=== PATIENT | female | born 1960 | race Caucasian/White ===

== ENCOUNTER → 2019-02-13 11:27 | Outpatient (CLI) | payer OTHER, SELFPAY ==
--- NOTE | 2019-02-13 | DI.MG.S_ITS ---
BILATERAL DIGITAL SCREENING MAMMOGRAM 3D/2D WITH CAD: 02/13/2019 CLINICAL: Routine screening. Comparison is made to exams dated: 01/31/2018 mammogram, 01/22/2017 mammogram, and 12/29/2015 mammogram - [facility]. The tissue of both breasts is heterogeneously dense. This may lower the sensitivity of mammography. Current study was also evaluated with a Computer Aided Detection (CAD) system. No significant masses, calcifications, or other findings are seen in either breast. There has been no significant interval change. IMPRESSION: NEGATIVE There is no mammographic evidence of malignancy. A 1 year screening mammogram is recommended. This exam was interpreted at Station ID: [id number]. NOTE: For mammograms, a report in lay terms will be sent to the patient. Approximately 15% of breast malignancies will not be visualized mammographically. In the management of a palpable breast mass, a negative mammogram must not discourage biopsy of a clinically suspicious lesion. Electronically Signed By: Ernie sanabria/moni:02/13/2019 11:58:48 copy to: Fly Sharpe letter sent: Normal Exam ACR BI-RADS Category 1: Negative [id number]
== END ==
PROVIDERS: PCP Family Medicine; Visit Provider Family Medicine
DX: Z12.31 Encounter for screening mammogram for malignant neoplasm of breast (principal)
CPT/HCPCS: 77063; 77067

== ENCOUNTER → 2020-02-17 13:06 | Outpatient (CLI) | payer OTHER, SELFPAY ==
--- NOTE | 2020-02-17 | DI.MG.S_ITS ---
BILATERAL DIGITAL DIAGNOSTIC MAMMOGRAM 3D/2D: 02/17/2020 CLINICAL: Left breast discharge. Comparison is made to exams dated: 02/13/2019 mammogram, 01/31/2018 mammogram, 01/22/2017 mammogram, 12/29/2015 mammogram, 12/15/2014 mammogram, and 11/30/2013 mammogram - [facility]. The tissue of both breasts is heterogeneously dense. This may lower the sensitivity of mammography. There is possible architectural distortion with fine round calcifications in the right breast anterior depth inferior region seen on the mediolateral oblique view only. This is more prominent and seen on additional ML view. There are possible a grouped fine calcifications in the left breast central to the nipple in the retroareolar region. These are not seen in additional views. This correlates with side of nipple discharge. No other significant masses or calcifications are seen in either breast. IMPRESSION: INCOMPLETE: NEEDS ADDITIONAL IMAGING EVALUATION The architectural distortion in the right breast anterior depth inferior region seen on the mediolateral oblique view is indeterminate. A targeted ultrasound is recommended and will immediately follow. No definite abnormality in the retroareolar left breast to correspond to nipple discharge. A targeted ultrasound is recommended and will immediately follow. This exam was interpreted at Station ID: [id number]. NOTE: For mammograms, a report in lay terms will be sent to the patient. Approximately 15% of breast malignancies will not be visualized mammographically. In the management of a palpable breast mass, a negative mammogram must not discourage biopsy of a clinically suspicious lesion. Electronically Signed By: Juan Chun M.D. slc/:02/17/2020 16:07:21 copy to: Fly Sharpe ACR BI-RADS Category 0: Incomplete 3340F
--- NOTE | 2020-02-17 | DI.US.S_ITS ---
LIMITED ULTRASOUND OF LEFT BREAST: 02/17/2020 CLINICAL: Nipple discharge, left breast, not bloody. Focal left breast pain. Comparison is made to exams dated: 02/17/2020 mammogram, 02/13/2019 mammogram, 01/31/2018 mammogram, 01/22/2017 mammogram, 12/29/2015 mammogram, and 12/15/2014 mammogram - [facility]. Color flow and real-time ultrasound of the left breast retroareolar were performed. Wong scale images of the real-time examination were reviewed. There are dilated ducts in the left breast central to the nipple in the retroareolar region. This correlates with the side of nipple discharge. Color flow imaging demonstrates that there is no vascularity present. No intraductal mass seen. IMPRESSION: PROBABLY BENIGN The dilated ducts in the left breast is consistent with duct ectasia and is probably benign. A follow-up ultrasound in 6 months is recommended. A follow-up mammogram and an ultrasound in 6 months is recommended to demonstrate stability. Exam findings were discussed with the patient by Dr. Chun over the phone. This exam was interpreted at Station ID: [id number]. Electronically Signed By: Juan Chun M.D. slc/:02/17/2020 16:13:30 copy to: Fly Sharpe letter sent: Followup Recommended Ultrasound BI-RADS: 3 Probably benign
--- NOTE | 2020-02-17 | DI.US.S_ITS ---
LIMITED ULTRASOUND OF RIGHT BREAST AND AXILLA: 02/17/2020 CLINICAL: Patient returns today to evaluate an architectural distortion in the right breast. Comparison is made to exams dated: 02/17/2020 mammogram, 02/13/2019 mammogram, 01/31/2018 mammogram, 01/22/2017 mammogram, 12/29/2015 mammogram, and 12/15/2014 mammogram - [facility]. Color flow and real-time ultrasound of the right breast 4-6 o'clock, and axilla regions were performed. Wong scale images of the real-time examination were reviewed. There is an irregular area of fibroglandular tissue in the right breast at 4-6 o'clock anterior depth. This irregular area of fibroglandular tissue is hypoechoic. This may correlate with mammography finding of architectural distortion. The calcifications seen on mammogram are faintly visualized. Color flow imaging demonstrates that there is no increase in vascularity. There also is a 2.9 cm x 1.2 cm x 1.4 cm oval enlarged lymph node with a circumscribed margin in the right axillary tail. This oval enlarged lymph node displays fatty hilum. No cortical thickening seen. IMPRESSION: SUSPICIOUS OF MALIGNANCY The irregular area of fibroglandular tissue in the right breast inferior medial anterior depth is at a low suspicion for malignancy. A stereotactic biopsy is recommended targeting the suspected architectural distortion and calcifications. The oval enlarged lymph node in the right axillary tail without cortical thickening and preserved fatty hilum is probably benign. A follow-up ultrasound in 6 months is recommended. If the stereotactic biopsy is positive, ultrasound guided biopsy should be preformed. Exam findings were discussed with the patient by Dr. Chun over the phone. This exam was interpreted at Station ID: [id number]. Electronically Signed By: Juan Chun M.D. slc/:02/17/2020 16:24:43 copy to: Fly Sharpe letter sent: Biopsy Required Ultrasound BI-RADS: 4a Low suspicion for malignancy
[2020-02-17 15:11] LABS: Add Manual Diff / Slide Review NO; Basophils Absolute Auto 100 /uL (0-100); Eosinophils Absolute Auto 100 /uL (0-450); Eosinophils Percent Auto 2.5 % (2-4); Hematocrit 44.5 % (36-46); Hemoglobin 15.4 g/dL (12.0-16.0); Lymphocytes Absolute Auto 1900 /uL (1100-4500); Lymphocytes Percent Auto 33.1 % (25-40); Mean Corpuscular HGB Conc 34.7 % (30-36); Mean Corpuscular Hemoglobin 32.5 PG (26-34); Mean Corpuscular Volume 93.8 fL (80-100); Monocytes Absolute Auto 600 /uL (0-900); Monocytes Percent Auto 9.9 % (3-14); Neutrophils Absolute Auto 3100 /uL (1500-7000); Neutrophils Percent Auto 53.5 % (50-75); Platelet Count 186 X10^3/uL (150-400); Red Blood Cell Count 4.74 X10^6/uL (4.0-5.2); Red Cell Distribution Width 13.2 % (11.6-14.8); White Blood Cell Count 5.8 X10^3/uL (4.5-11.0)
[2020-02-17 15:45] LABS: Prolactin 16.2 ng/mL (3.0-18.6)
[2020-02-17 15:59] LABS: TSH w/ Reflex to FT4 3.31 uIU/mL (0.47-4.68)
== END ==
PROVIDERS: PCP Family Medicine; Referring Provider Student in an Organized Health Care Education/Training Program; Visit Provider Student in an Organized Health Care Education/Training Program
DX: R92.8 Other abnormal and inconclusive findings on diagnostic imaging of breast (principal); N60.42 Mammary duct ectasia of left breast; N64.52 Nipple discharge; N64.4 Mastodynia; R59.0 Localized enlarged lymph nodes
CPT/HCPCS: 36415; 76642; 77066; 84146; 84443; 85025; G0279

== ENCOUNTER → 2020-05-29 08:43 | Outpatient (CLI) | payer OTHER, SELFPAY ==
[2020-05-30 13:58] LABS: COVID19 Sendout Not Detected (Not Detect)
== END ==
PROVIDERS: PCP Student in an Organized Health Care Education/Training Program; Visit Provider Physician Assistant
DX: Z01.812 Encounter for preprocedural laboratory examination (principal)
CPT/HCPCS: 87635

== ENCOUNTER 2020-06-01 07:01 | Day surgery (SDC) | payer OTHER, SELFPAY ==
[2020-05-27 08:59] VITALS: BMI 24.3
--- NOTE | 2020-06-01 | DI.MG.S_ITS ---
WIRE LOCALIZATION RIGHT BREAST- POST-NEEDLE BIOPSY: 06/01/2020 CLINICAL: Right breast radial scar. Correlation is made to exams dated: 02/22/2020 stereotactic biopsy - [facility], 02/17/2020 mammogram, and 02/13/2019 mammogram - [facility]. A wire localization was performed for the area of asymmetry located in the right breast at 4 o'clock middle depth. The skin was prepped in the usual manner. A J-hook wire was inserted into the targeted area. IMPRESSION: WIRE LOCALIZATION Wire localization for the area of asymmetry in the right breast at 4 o'clock middle depth was successful. Future imaging is recommended as follows: 08/18/2020 mammogram and an ultrasound. This exam was interpreted at Station ID: [id number]. Crys lowe/moni:06/01/2020 11:51:52
--- NOTE | 2020-06-01 | DI.MG.S_ITS ---
SPECIMEN: 06/01/2020 CLINICAL: Right breast speciman. Correlation is made to exams dated: 06/01/2020 [facility] and 02/22/2020 stereotactic biopsy - [facility]. Surgical specimen contains clip and wire. IMPRESSION: SPECIMEN Surgical specimen contains clip and wire. Future imaging is recommended as follows: 08/18/2020 mammogram and an ultrasound. This exam was interpreted at Station ID: [id number]. Crys Santana M.D. [facility]/:06/01/2020 12:58:22
--- NOTE | 2020-06-01 | PATH_ITS ---
[facility] Accession Number: [id number] . 01 Material submitted: . breast - RIGHT BREAST TISSUE . 01 Clinical history: . RIGHT BREAST EXCISIONAL BX . 02 Diagnosis: Right Breast Tissue, Excisional Biopsy with Wire Localization: Radial scar present in a background of fibrocystic change consisting of stromal fibrosis with patchy hyalinization, cystic dilatation of terminal ductules, apocrine metaplasia, ductal hyperplasia without atypia, and patchy adenosis. Changes consistent with previous instrumentation are present. Pleomorphic calcifications are present and are associated with benign ductal epithelium. Skin with no abnormality by gross examination. [facility] 06/03/2020 1312 Local . 02 Electronically signed: . Fabiana Miguel MD, Pathologist NPI- [id number] . 01 Gross description: . Specimen A is received in formalin, labeled with patient identification and right breast tissue. . Specimen: Right lumpectomy. Weight: 34.0 grams. Measurement: 5.0 cm from anterior to posterior, 5.0 cm from lateral to medial, and 2.5 cm from superior to inferior. Skin Ellipse: A small pink-ledesma and small piece of skin is present, measuring 0.7 x 0.3 x 0.2 cm. Wire: One localization wire is present, penetrating at the anterior side and through the skin piece. Margin: Oriented by surgeon with short single lateral suture, short double medial suture, long double deep suture, and long single superficial suture. The specimen is inked as follows: posterior = black; anterior = purple; superior = blue; inferior = green; medial = yellow; lateral = orange. Slice: Serially sectioned from medial to lateral in 11 slices. Lesion: Description: A white-ledesma, ill-defined and encapsulated induration is present from slice 6 to slice 8. Biopsy Site: A mildly hemorrhagic biopsy cavity is present on slice 7. Distance to Margins: The induration abuts the anterior and superior margins, 0.5 cm to the inferior margin, 1.8 cm to medial margin, 2.2 cm to lateral margin, and 2.8 cm to the posterior margin. Others: The remaining cut surfaces consist of yellow lobulated adipose tissue compromising 95% of the breast parenchyma. The remaining 5% consists of queen-white, rubbery, fibroglandular tissue. No additional discrete masses or lesions are grossly identified. The skin surface is grossly unremarkable. Fixation Time: The specimen was placed in formalin at 13:16 on 06/01/2020 for a total fixation time of 34 hours and 45 minutes. . Sections: [employer] sections are submitted in 12 cassettes. A1 - Slice 1, teleservices representative lateral end of specimen, perpendicular, four pieces. A2 - Slice 2, teleservices representative anterior, posterior, superior, and inferior margins. A3 - Slice 5, teleservices representative, no identifiable tumor, lateral to lesion (beginning of bracket). A4 - Slice 6, mass to anterior, superior, and inferior margins, one piece. A5-A6 - Slice 7, mass to the closest superior, anterior, inferior, and posterior margins, pair, one piece each. A7 - Slice 8, the remaining mass to anterior, superior, and inferior margins, one piece. A8 - Slice 9, teleservices representative, no identifiable tumor, medial to lesion (end of the bracket). A9 - Slice 10, teleservices representative superior and inferior margins, one piece. A10-A11 - Slice 11, teleservices representative medial end of the specimen, perpendicular, two pieces each. A12 - [employer] entire small piece of skin, one piece. ([id number]) /[facility] 06/03/2020 0947 Local . 02 Pathologist provided ICD-10: L90.5, N60.11 . 02 CPT . 893213 Performed at: 01 [facility] [address], [place], [place] [id number] MD Ashvin Arana MD Phone: [phone] Performed at: 02 [facility] [address] [place], [place] [id number] MD Mohini Stringer MD Phone: [phone]
[2020-06-01 07:18] VITALS: BP 175/96; PULSE 77; RESP 18; TEMP 35.9; O2SAT 97; BMI 24.8
--- NOTE | 2020-06-01 07:38 | PM.PREOP ---
Pre-operative Note COVID-19 COVID-19 status: Negative Result date/Date tested (Pos, Neg/Pending): 05/29/20 Interval Note History & Physical reviewed/Exam performed by Physician: Yes Changes to H&P: No
[2020-06-01] MEDS: LACTATED RINGERS 1,000 ML 100 ML IV (09:11)
[2020-06-01] MEDS: CEFAZOLIN 2 GM/100 ML FROZ.PIGGY IV (11:53)
--- NOTE | 2020-06-01 11:57 | SUR.OPER ---
Supine on padded OR bed, head on pillow, arms secured on padded arm boards at <90 degrees abduction, legs uncrossed, safety belt at thigh, tape over blanket over lower legs.
[2020-06-01] MEDS: BUPIVACAINE 0.25% W/ EPI 30 ML VIAL INJ (12:10)
[2020-06-01] MEDS: OXYCODONE IR 5 MG TABLET PO (13:13)
--- NOTE | 2020-06-01 13:16 | PM.OP.1 ---
Operative Date/Time/Diagnoses Date of procedure: 06/01/20 Time of procedure: 13:16 Pre-op diagnosis: right breast radial scar Post-op diagnosis: same Procedure & Clinicians Procedure: right breast lumpectomy; 2cm x3cm Same procedure as scheduled: Yes Indications: This is a 59 yo woman with right breast radial scar. Surgeon: Janis Huertas Click Yes if Unassisted: Yes Anesthesia Type: General Operative Notes Findings: Right breast mass with clip and wire completely included in the specimen Closure Type: primary Specimen(s): other (right breast mass; long double stitch deep; short single stitch superficial; short double stitch medial; short single stitch lateral) Estimated Blood Loss (mL): 1 Procedure in detail: The patient was brought into the OR and placed supine on the OR table. Sequential compression devices were placed on both legs and turned on. General anesthesia was induced and the patient was intubated by the anesthesiologist. Appropriate perioperative antibiotics were given. Surgical time out was performed. Local anesthetic was infiltrated into the skin, and a 6cm curvilinear incision was made over the lower inner quadrant of the right breast, including the localization wire. Dissection was carried down following the wire, encompassing a 2cm x 3cm lumpectomy specimen. Once the specimen was out, it was marked as listed. I then passed it off the table for radiology. We received a call from radiology that the wire and clip were included in the specimen. I irrigated the wound and cauterized the bleeding points with bovie. I then brought together the deep space with 3-0 Vicryl, closed the dermis with 3-0 Vicryl, and subcuticular 4-0 Monocryl. Dermabond was used to seal the skin edges. Once the glue was dry, a 4x4 pressure dressing was secured in place with Tegaderm, and a breast binder was placed on the patient for compression. All were secured in place with Tegaderm. The patient was then awakened from anesthesia and extubated. Needle sponge and instrument counts were correct x 2. The patient was transferred to the PACU in stable condition. Complications: none Post-operative Condition: stable Disposition: PACU
[2020-06-01 13:25] VITALS: BP 161/93; PULSE 68; RESP 16; TEMP 36.3; O2SAT 98
--- NOTE | 2020-06-01 13:33 | SUR.PHASEII ---
Patient came straight from OR to phase 2, accomponied by Dr. Deal. Patient alert and oriented. Respirations even and unlabored.
[2020-06-01 13:53] VITALS: BP 153/86; PULSE 68; RESP 16; TEMP 36.3; O2SAT 98
== END 2020-06-01 14:00 | disposition home or self-care (01) ==
PROVIDERS: PCP Student in an Organized Health Care Education/Training Program; Referring Provider Surgery; Visit Provider Surgery
PROC: (CPT 19301; principal; 2020-06-01 10:45)
DX: N60.11 Diffuse cystic mastopathy of right breast (principal); L90.5 Scar conditions and fibrosis of skin
CPT/HCPCS: 19301; 19281; 76098; J0690; J1100; J2250; J2405; J2704; J3010

== ENCOUNTER → 2020-09-22 09:30 | Outpatient (CLI) | payer OTHER, SELFPAY ==
--- NOTE | 2020-09-22 09:34 | DI.MG.S_ITS ---
BILATERAL DIGITAL DIAGNOSTIC MAMMOGRAM 3D/2D: 09/22/2020 CLINICAL: Short term follow up for bilateral breasts. Comparison is made to exams dated: 02/22/2020 stereotactic biopsy - [facility], 02/17/2020 mammogram, and 02/13/2019 mammogram - [facility]. The tissue of both breasts is heterogeneously dense. This may lower the sensitivity of mammography. There is a possible stable architectural distortion with fine round calcifications in the right breast anterior depth inferior region seen on the mediolateral oblique view only. There are stable grouped fine calcifications in the left breast central to the nipple in the retroareolar region. No other significant masses or calcifications are seen in either breast. IMPRESSION: PROBABLY BENIGN The possible stable architectural distortion in the right breast anterior depth inferior region seen on the mediolateral oblique view only is probably benign. The stable grouped fine calcifications in the left breast central to the nipple in the retroareolar region are probably benign. A follow-up mammogram in 12 months is recommended. This exam was interpreted at Station ID: [id number]. NOTE: For mammograms, a report in lay terms will be sent to the patient. Approximately 15% of breast malignancies will not be visualized mammographically. In the management of a palpable breast mass, a negative mammogram must not discourage biopsy of a clinically suspicious lesion. Electronically Signed By: Aneudy Epperson M.D., jr/moni:09/22/2020 10:30:59 letter sent: Followup Recommended ACR BI-RADS Category 3: Probably benign 3343F
== END ==
PROVIDERS: PCP Student in an Organized Health Care Education/Training Program; Referring Provider Student in an Organized Health Care Education/Training Program; Visit Provider Student in an Organized Health Care Education/Training Program
DX: R92.8 Other abnormal and inconclusive findings on diagnostic imaging of breast (principal); R92.1 Mammographic calcification found on diagnostic imaging of breast
CPT/HCPCS: 77066; G0279

== ENCOUNTER → 2020-12-01 14:08 | Outpatient (CLI) | payer OTHER, SELFPAY ==
--- NOTE | 2020-12-01 | DI.US.S_ITS ---
LIMITED ULTRASOUND OF LEFT BREAST AND AXILLA: 12/01/2020 CLINICAL: Nipple discharge, left breast, not bloody. Comparison is made to exams dated: 09/22/2020 mammogram, 06/01/2020 specimen, 06/01/2020 [facility], 05/10/2020 ultrasound biopsy - [facility], and 02/17/2020 [facility]. Color flow and real-time ultrasound of the left breast retroareolar and axilla regions were performed on the areas of interest. There are a few mildly dilated ducts in the left breast central to the nipple in the retroareolar region measuring 2-3 mm. No discrete mass or other filling defects. Findings are slightly increased in prominence compared to prior US. IMPRESSION: PROBABLY BENIGN The dilated ducts in the left breast are probably benign. A follow-up ultrasound in 10-12 months is recommended at the time of patient's recommended mammogram followup. Future imaging is recommended as follows: 09/22/2021 follow-up left mammogram. This exam was interpreted at Station ID: [id number]. Electronically Signed By: Ashvin Sanabria M.D. ddmac/:12/01/2020 14:57:30 letter sent: Followup Recommended Ultrasound BI-RADS: 3 Probably benign
== END ==
PROVIDERS: PCP Student in an Organized Health Care Education/Training Program; Referring Provider Student in an Organized Health Care Education/Training Program; Visit Provider Student in an Organized Health Care Education/Training Program
DX: N64.52 Nipple discharge (principal)
CPT/HCPCS: 76642

== ENCOUNTER → 2021-01-31 16:52 | Outpatient (CLI) | payer OTHER, SELFPAY ==
[2021-01-31] MEDS: COVID-19 VACC #1, MRNA(MOD) 100 MCG/0.5 ML VIAL IM (16:58)
== END ==
PROVIDERS: PCP Student in an Organized Health Care Education/Training Program; Visit Provider Internal Medicine
DX: Z23 Encounter for immunization (principal)
CPT/HCPCS: 0011A; 91301

== ENCOUNTER → 2021-03-01 10:18 | Outpatient (CLI) | payer OTHER, SELFPAY ==
[2021-03-01] MEDS: COVID-19 VACC #2, MRNA(MOD) 100 MCG/0.5 ML VIAL IM (10:26)
== END ==
PROVIDERS: PCP Student in an Organized Health Care Education/Training Program; Visit Provider Internal Medicine
DX: Z23 Encounter for immunization (principal)
CPT/HCPCS: 0012A; 91301

== ENCOUNTER → 2021-03-09 09:29 | Outpatient (CLI) | payer OTHER, SELFPAY ==
--- NOTE | 2021-03-09 | DI.RAD.S_ITS ---
PROCEDURE: FL BARIUM SWALLOW INDICATIONS: Dysphagia, unspecified COMPARISON: None. FINDINGS: Function: There is normal esophageal peristalsis. No elicited gastroesophageal reflux. There is normal transit of a calibrated barium tablet through the esophagus into the stomach. Morphology: Air-contrast images demonstrate normal mucosal morphology. Single contrast views show no esophageal strictures, extrinsic mass effects, or diverticula. Limited images of the stomach demonstrate normal appearance. IMPRESSION: Normal barium swallow exam. Dictated by: Reyna Garcia M.D. on 03/09/2021 at 11:17 Approved by: Reyna Garcia M.D. on 03/09/2021 at 11:20
== END ==
PROVIDERS: PCP Family Medicine; Referring Provider Family Medicine; Visit Provider Student in an Organized Health Care Education/Training Program
DX: R13.10 Dysphagia, unspecified (principal)
CPT/HCPCS: 74220

== ENCOUNTER → 2021-10-25 11:57 | Outpatient (CLI) | payer OTHER, SELFPAY ==
--- NOTE | 2021-10-25 | DI.MG.S_ITS ---
BILATERAL DIGITAL DIAGNOSTIC MAMMOGRAM 3D/2D SHORT-TERM FOLLOW-UP: 10/25/2021 CLINICAL: Short term follow up for bilateral breasts. Comparison is made to exams dated: 09/22/2020 mammogram, 02/17/2020 [facility], 02/22/2020 ultrasound - [facility], and 02/13/2019 [facility]. The tissue of both breasts is heterogeneously dense. This may lower the sensitivity of mammography. There is a stable architectural distortion with grouped fine round calcifications in the right breast anterior depth inferior region seen on the mediolateral oblique view only. There are stable grouped fine calcifications in the left breast central to the nipple anterior depth. No other significant masses or calcifications are seen in either breast. IMPRESSION: INCOMPLETE: NEEDS ADDITIONAL IMAGING EVALUATION The architectural distortion in the right breast anterior depth inferior region seen on the mediolateral oblique view only is stable and probably benign. Grouped fine calcifications in the left breast central to the nipple anterior depth are stable and probably benign. Follow-up in 12 months recommended. An ultrasound will immediately follow this exam to re-evaluate a few mildly dilated ducts in the left retroareolar breast seen previously (no mammographic correlate). This exam was interpreted at Station ID: [id number]. NOTE: For mammograms, a report in lay terms will be sent to the patient. Approximately 15% of breast malignancies will not be visualized mammographically. In the management of a palpable breast mass, a negative mammogram must not discourage biopsy of a clinically suspicious lesion. Electronically Signed By: Aneudy Epperson M.D. jr/:10/25/2021 12:49:26 ACR BI-RADS Category 0: Incomplete 3340F
--- NOTE | 2021-10-25 12:00 | DI.US.S_ITS ---
LIMITED ULTRASOUND OF LEFT BREAST: 10/25/2021 CLINICAL: Short term follow up for the left breast. Comparison is made to exams dated: 10/25/2021 mammogram, 12/01/2020 ultrasound, 09/22/2020 mammogram, 02/17/2020 ultrasound, 02/17/2020 mammogram, and 02/13/2019 mammogram - [facility]. Color flow, real-time, and Doppler ultrasound of the left breast retroareolar were performed. Wong scale images of the real-time examination were reviewed. There is a new 1.5 cm x 0.6 cm intraductal mass in the left breast at 6 o'clock in the retroareolar region 2 cm from the nipple. This intraductal mass is isoechoic with posterior acoustic shadowing. IMPRESSION: SUSPICIOUS OF MALIGNANCY The new 1.5 cm x 0.6 cm intraductal mass in the left breast is suspicious of malignancy. An ultrasound guided biopsy is recommended. This exam was interpreted at Station ID: [id number]. Electronically Signed By: Aneudy Epperson M.D., jr/moni:10/26/2021 09:12:13 letter sent: Biopsy Required Ultrasound BI-RADS: 4 Suspicious for malignancy
== END ==
PROVIDERS: PCP Family Medicine; Referring Provider Family Medicine; Visit Provider Family Medicine
DX: R92.8 Other abnormal and inconclusive findings on diagnostic imaging of breast (principal); N63.25 Unspecified lump in the left breast, overlapping quadrants; R92.1 Mammographic calcification found on diagnostic imaging of breast
CPT/HCPCS: 76642; 77066; G0279

== ENCOUNTER → 2021-10-25 12:06 | Outpatient (CLI) | payer OTHER, SELFPAY | PROVIDERS: PCP Family Medicine; Referring Provider Family Medicine; Visit Provider Family Medicine | DX: R92.8 Other abnormal and inconclusive findings on diagnostic imaging of breast (principal); R92.1 Mammographic calcification found on diagnostic imaging of breast; N63.25 Unspecified lump in the left breast, overlapping quadrants | CPT/HCPCS: 77066; G0279 ==

== ENCOUNTER → 2022-05-01 14:01 | Outpatient (CLI) | payer OTHER, SELFPAY ==
--- NOTE | 2022-05-01 14:06 | DIET.CONS ---
Dietary Consultation Note Assessment: 61y F [address] visit for help with new dx preDM (A1c 6.2) Pt lives alone, is . Taking statin (2y) and lisinopril both dialed in, pt feels good about amount, enjoys working c PCP. Pt loves to exercise, peloton 2-3x/w, pilates reformer once weekly, walk dog 30-90 min several times per week- excellent Usual Day: wakes 7-730am (night owl) cup coffee c half and half drinks a lot of water 9am morning meds B (9:30-10am): 1/2c dry old fashioned oats c walnuts and water, berries if have them, 2% milk or josh killer bread thin with fried egg, cheese or avocado or tomato Saturday breakfast waffles or pancakes c roach Sometimes has snack, sometimes has lunch Sn: 1/2 apple L: geradeli salad, mozza sandwich D: Hello Fresh twice weekly- veggie or fish/salmon, always has veggie (zucchini, spinach, onions pepper, mushrooms), small roasted potatoes, maybe rice, maybe naan Drinks red wine 4-5d/w but just one glass no red meat x40y sometimes has berries after dinner crackers for happy hour or olives Ht: 5'10 Wt: 178# BMI: 25.3 UBW: 165# RD Impression: Pt living quite healthy life nutrition and exercise cancino. She recently gained 10% of body weight through covid (wine and crackers) which could lead to elevated A1c. Pt has already started weight loss, currently -8# with a goal of another 8-13# reduction in weight. Recc pt check A1c in 3mo to see if lifestyle changes including 10% weight loss corrects this. Nutrition Diagnosis: altered nutrition related laboratory values r/t undesirable food choices and weight gain aeb pt gained 10% body weight over covid, pt reports increased intake low fiber crackers and wine during this time, A1c 6.2. Interventions: 1. Reinforced pts desire for weight loss secondary to labs showing HTN, HLD, HTG, preDM indicating benefit of 10% weight loss. 2. Discussed strategies like aiming for goal protein and fiber levels, and portion control. Pt will limit wine to no more than 2 glasses at a time, ideally 1 4 or fewer days per week. Pt will choose crackers with 3+g fiber per serving. Pt will switch from standard pancake mix to [employer] brand. 3. Set calorie needs to 6124-2951/d and provided cardiometabolic food plan to support balanced intake. EER: 25g Fiber, 80g PRO, 1800-2000kcals Monitoring/Evaluations: f/u prn Electronically Signed by: Molly Thomas 05/01/22 14:06 Clinical Dietitian [address] [id number]
[2022-05-01 15:00] VITALS: BMI 25.5
== END ==
PROVIDERS: PCP Family Medicine; Referring Provider Family Medicine; Visit Provider Family Medicine
DX: R73.03 Prediabetes (principal); Z71.3 Dietary counseling and surveillance; Z68.25 Body mass index [BMI] 25.0-25.9, adult
CPT/HCPCS: 97802

== ENCOUNTER → 2022-05-11 11:55 | Outpatient (CLI) | payer OTHER, SELFPAY ==
--- NOTE | 2022-05-11 11:56 | DI.US.S_ITS ---
PROCEDURE: US BREAST LT LIMITED COMPARISON: [facility], US, US BIOPSY BREAST 1ST LESION LEFT, 11/07/2021, 13:54. [facility], , US BREAST LT LIMITED, 10/25/2021, 12:53. INDICATIONS: INTRADUCTAL PAPILLOMA FINDINGS: IMPRESSION: Dictated by: Nia Guzman M.D. on 05/11/2022 at 13:09 Approved by: Nia Guzman M.D. on 05/11/2022 at 13:17
--- NOTE | 2022-05-11 11:56 | DI.MG.S_ITS ---
UNILATERAL LEFT DIGITAL DIAGNOSTIC MAMMOGRAM 3D/2D SHORT-TERM FOLLOW-UP: 05/11/2022 CLINICAL: Short term follow up for the left breast. Comparison is made to exams dated: 11/07/2021 ultrasound biopsy, 11/07/2021 mammogram - [facility], 10/25/2021 ultrasound, and 10/25/2021 mammogram - [facility]. The tissue of left breast is heterogeneously dense. This may lower the sensitivity of mammography. There is a biopsy clip in the left breast. No significant masses, calcifications, or other findings are seen in the breast. IMPRESSION: INCOMPLETE: NEEDS ADDITIONAL IMAGING EVALUATION A targeted ultrasound of the left breast is recommended to evaluate the previous biopsy site from 10/25/21 and will be performed immediately following this exam. Based on the Tyrer Cuzick model (a risk assessment model) the patient's lifetime risk is 9.5% and her 10 year risk is 3.7%. According to the ACR, ACS, and NCCN guidelines, an annual breast MRI exam along with mammogram is recommended if the patient's lifetime risk is 20% or greater. This exam was interpreted at Station ID: [id number]. NOTE: For mammograms, a report in lay terms will be sent to the patient. Approximately 15% of breast malignancies will not be visualized mammographically. In the management of a palpable breast mass, a negative mammogram must not discourage biopsy of a clinically suspicious lesion. Electronically Signed By: Nia Guzman M.D. lk/:05/11/2022 12:41:07 ACR BI-RADS Category 0: Incomplete 3340F
--- NOTE | 2022-05-11 12:59 | DI.US.S_ITS ---
Procedure: US breast LT limited ULTRASOUND OF LEFT BREAST: 05/11/2022 CLINICAL: 6 month follow-up biopsy. Comparison is made to exams dated: 05/11/2022 mammogram - , 11/07/2021 ultrasound biopsy, 11/07/2021 mammogram - [facility], 10/25/2021 ultrasound, 10/25/2021 mammogram, and 12/01/2020 ultrasound - . Color flow and real-time ultrasound of the left breast were performed on the areas of interest. Wong scale images of the real-time examination were reviewed. There is a 1.1 cm x 0.4 cm x 0.7 cm irregular mass in the left breast central to the nipple anterior depth. This abnormality is decreased in size from the study dated 10/25/21 and corresponds with the biopsy proven papilloma. IMPRESSION: PROBABLY BENIGN There is no sonographic evidence of malignancy. The 1.1 cm x 0.4 cm x 0.7 cm irregular mass in the left breast is consistent with a papilloma and is benign. Future imaging is recommended as follows: 10/25/2022 mammogram to follow up left breast calcifications. This exam was interpreted at Station ID: [id number]. Electronically Signed By: Nia Guzman M.D. lk/:05/11/2022 13:17:23 Entry: - 05/15/2022 10:55:05 Continued Report - Page 2 of 2 Patient Name: YARED WORKMAN date: 1960 Sex: F Attending Physician: Rajendra Indications: Date: 05/11/2022 12:59 At the request of: WARD ROTHMAN Procedure: US breast LT limited letter sent: Followup Recommended Ultrasound BI-RADS: 3 Probably benign
== END ==
PROVIDERS: PCP Family Medicine; Referring Provider Surgery; Visit Provider Surgery
DX: D24.2 Benign neoplasm of left breast (principal); R92.8 Other abnormal and inconclusive findings on diagnostic imaging of breast
CPT/HCPCS: 76642; 77065; G0279

== ENCOUNTER → 2022-12-17 10:13 | Outpatient (CLI) | payer OTHER, SELFPAY ==
--- NOTE | 2022-12-17 | DI.MG.S_ITS ---
BILATERAL DIGITAL DIAGNOSTIC MAMMOGRAM 3D/2D SHORT-TERM FOLLOW-UP: 12/17/2022 CLINICAL: Short term follow up of the left breast, due for bilateral imaging. Comparison is made to exams dated: 05/11/2022 mammogram - [facility], 11/07/2021 mammogram - [facility], and 10/25/2021 mammogram - [facility]. There are scattered areas of fibroglandular density in both breasts (category b / 25%-50% glandular tissue). There is a biopsy clip in the anterior left breast central to the nipple indicating region of previously biopsied callcifications. The calcifications are no longer seen. No other significant masses, calcifications, or other findings are seen in either breast. IMPRESSION: BENIGN Resolution of previously biopsied left breast calcifications. Mammograms are otherwise stable. Return to annual mammogram screening schedule is recommended. Findings and recommendations were conveyed to the patient at time of exam. Based on the Tyrer Cuzick model (a risk assessment model) the patient's lifetime risk is 6.2% and her 10 year risk is 2.5%. According to the ACR, ACS, and NCCN guidelines, an annual breast MRI exam along with mammogram is recommended if the patient's lifetime risk is 20% or greater. This exam was interpreted at Station ID: [id number]. NOTE: For mammograms, a report in lay terms will be sent to the patient. Approximately 15% of breast malignancies will not be visualized mammographically. In the management of a palpable breast mass, a negative mammogram must not discourage biopsy of a clinically suspicious lesion. Electronically Signed By: Amanda chowdhury/:12/17/2022 11:50:41 letter sent: Normal Exam ACR BI-RADS Category 2: Benign Finding(s) 3342F
== END ==
PROVIDERS: PCP Family Medicine; Referring Provider Family Medicine; Visit Provider Family Medicine
DX: R92.8 Other abnormal and inconclusive findings on diagnostic imaging of breast (principal)
CPT/HCPCS: 77066; G0279

== ENCOUNTER → 2023-12-18 08:34 | Outpatient (CLI) | payer OTHER, SELFPAY ==
--- NOTE | 2023-12-18 08:35 | DI.MG.S_ITS ---
BILATERAL DIGITAL SCREENING MAMMOGRAM 3D/2D WITH CAD: 12/18/2023 CLINICAL: Routine screening. Comparison is made to exams dated: 12/17/2022 mammogram, 05/11/2022 mammogram, 10/25/2021 mammogram, 09/22/2020 mammogram, 02/13/2019 mammogram, and 02/17/2020 mammogram - [facility]. There are scattered areas of fibroglandular density in both breasts (category b / 25%-50% glandular tissue). Current study was also evaluated with a Computer Aided Detection (CAD) system. No significant masses, calcifications, or other findings are seen in either breast. There has been no significant interval change. IMPRESSION: NEGATIVE There is no mammographic evidence of malignancy. A 1 year screening mammogram is recommended. Based on the Tyrer Cuzick model (a risk assessment model) the patient's lifetime risk is 6.1% and her 10 year risk is 2.5%. According to the ACR, ACS, and NCCN guidelines, an annual breast MRI exam along with mammogram is recommended if the patient's lifetime risk is 20% or greater. This exam was interpreted at Station ID: [id number]. NOTE: For mammograms, a report in lay terms will be sent to the patient. Approximately 15% of breast malignancies will not be visualized mammographically. In the management of a palpable breast mass, a negative mammogram must not discourage biopsy of a clinically suspicious lesion. Electronically Signed By: Nia walsh/moni:12/18/2023 09:08:22 copy to: WARD ROTHMAN letter sent: Normal Exam ACR BI-RADS Category 1: Negative 3341F
== END ==
LOC: MAMMO 08:34
PROVIDERS: PCP Family Medicine; Referring Provider Family Medicine; Visit Provider Family Medicine
DX: Z12.31 Encounter for screening mammogram for malignant neoplasm of breast (principal); R92.30 Dense breasts, unspecified
CPT/HCPCS: 77063; 77067

== ENCOUNTER → 2024-07-20 08:10 | Outpatient (CLI) | payer BC, SELFPAY ==
--- NOTE | 2024-07-20 | DI.US.S_ITS ---
PROCEDURE: US PELVIC COMPLETE INDICATIONS: LOWER ABDOMINAL PAIN TECHNIQUE: Real-time scanning was performed of the pelvic organs, with image documentation. Additional endovaginal scanning was necessary due to incomplete visualization of the adnexal and endometrial structures by transabdominal scanning. COMPARISON: None. FINDINGS: Uterus: Uterus is anteverted and normal in size at 5.5 x 2.3 x 3.1 cm. The myometrium is homogeneous. The endometrium measures 2.5 mm combined thickness. Ovaries: The right ovary measures 1.0 x 1.6 x 1.1 cm, with a calculated ovarian volume of 0.9 cc. The left ovary measures 1.5 x 2.1 x 0.9 cm, with a calculated ovarian volume of 1.6 cc. The ovaries have a normal sonographic appearance. Less than 12 follicles can be seen in each ovary. No adnexal masses are seen. Other: No pathologic free abdominal or pelvic fluid. IMPRESSION: Unremarkable ultrasound the pelvis Approved by: David Peng M.D. on 07/21/2024 at 10:56
== END ==
PROVIDERS: PCP Family Medicine; Referring Provider Family Medicine; Visit Provider Family Medicine
DX: R10.30 Lower abdominal pain, unspecified (principal)
CPT/HCPCS: 76830; 76856

== ENCOUNTER 2024-09-25 12:21 | Day surgery (SDC) | payer BC, SELFPAY ==
--- NOTE | 2024-09-25 | PATH_ITS ---
[facility] Accession Number: [id number] No. of containers..01 Tissue . 01 Material submitted: . colon - TRANSVERSE COLON POLYP . 01 Diagnosis: TRANSVERSE COLON POLYP: Hyperplastic polyp. [facility] 09/28/2024 1041 Local . 01 Electronically signed: . Lorenzo Trent MD, PhD, Pathologist NPI- [id number] . 01 Gross description: . Received in formalin, labeled with two patient identifiers and designated transverse colon polyp, and consists of a 0.2 cm in greatest dimension, ledesma-brown soft tissue which is entirely submitted in cassette A1. ([id number]) /FRR 09/26/2024 1358 Local . 01 Pathologist provided ICD-10: K63.5 . 01 CPT . 753667 Specimen Comment: A courtesy copy of this report has been sent to [phone] Performed at: [address] [facility] [address], [place], [place] [id number] MD Ashvin Arana MD Phone: [phone]
[2024-09-25 12:38] VITALS: BP 185/106; PULSE 75; RESP 17; TEMP 36.2; O2SAT 99
--- NOTE | 2024-09-25 13:39 | P.HP_ITS ---
History of Present Illness History of Present Illness Date Patient Seen: 09/25/24 Time Patient Seen: 13:40 Chief complaint: Dx Colonoscopy w/poss bx Narrative: 63F with abdominal pain and intermittent rectal bleeding here for diagnostic colonoscopy possible hemorrhoidal bleeding [facility] Medical History Myocardial infarction (02/10/10) Easy bruisability Seasonal allergies Depression Sleep apnea (2008) Cardiomyopathy SVT (supraventricular tachycardia) Hyperlipemia Surgical History Hx of right breast biopsy (04/2020) Hx of lymph node biopsy (05/2020) Family History Father Hypertension Lung cancer Stroke Sister Heart disease Daughter Heart disease Social History marital status: unknown household members: none lives independently: Yes occupational status: previously employed Smoking Status: Never smoker alcohol intake: current substance use type: does not use Meds Home Medications and Allergies Home Medications Medication Instructions Recorded Confirmed Type atorvastatin 40 mg tablet 40 mg PO DAILY 04/14/20 09/25/24 History carvedilol 12.5 mg tablet 12.5 mg PO BID 04/14/20 09/25/24 History multivitamin 1 cap PO DAILY 04/14/20 07/24/24 History lisinopril 20 1 tab PO DAILY 07/24/24 09/25/24 History mg-hydrochlorothiazide 25 mg tablet sodium,potassium,mag sulfates 17.5 See Rx Instructions PO .COMPLEX 07/24/24 Rx gram-3.13 gram-1.6 gram oral soln #354 mL (Suprep Bowel Prep Kit) Allergies Allergy/AdvReac Type Severity Reaction Status Date / Time No Known Drug Allergies Allergy Verified 09/25/24 12:33 Exam Vital Signs (past 8 hours): - 09/25/24 12:38 Temperature 97.2 F L Pulse Rate 75 Respiratory Rate 17 Blood Pressure 185/106 H Pulse Oximetry 99 Oxygen Delivery Method Room Air Oxygen Delivery Method Room Air Narrative Exam Narrative: Gen-Adult woman alert and oriented Abdomen-Soft non tender Assessment & Plan Assessment and plan (1) Abdominal pain: Qualifiers: Abdominal location: left lower quadrant Qualified Code(s): R10.32 - Left lower quadrant pain Status: Acute Assessment & Plan narrative: 63F with abdominal pain and intermittent rectal bleeding here for diagnostic colonoscopy possible hemorrhoidal banding. Technical details were discussed. Risks, benefits, alternatives explained. Risks including but not limited to myocardial infarction, aspiration, bleeding, pain, missed lesion, incomplete examination, need for further radiographic studies, intestinal injury, and need for major abdominal surgery were discussed. All questions were answered to their satisfaction, and they are in agreement with this plan. Time-Based Coding :: [TOTAL MINUTES] spent with patient and on the chart (including review of chart, obtaining history, exam, reviewing outside data, placing orders, documenting e xam and treatment plan, and counseling patient) on [DATE].
--- NOTE | 2024-09-25 13:44 | P.OP.COLON_ITS ---
Operative Date/Time/Diagnoses Date of procedure: 09/25/24 Time of procedure: 13:44 Pre-op diagnosis: Abdominal pain Procedure & Clinicians Study performed: Diagnostic colonoscopy Same procedure as scheduled: Yes Indications: 63-year-old woman with abdominal pain of unknown etiology and intermittent rectal bleeding here for diagnostic colonoscopy Surgeon: Rick Liu Procedure Notes Procedure in detail: The history and physical was performed/updated and the patient is ASA class is 2. The procedure was discussed in detail with the patient. Potential risks complications including infection, bleeding, missed diagnosis, perforation, need for surgery, and were explained. Their questions were answered and informed consent was obtained. Patient was brought to the procedure room and placed standard monitoring equipment. The patient's vital signs were monitored continuously throughout the entire procedure. Prior to starting time-out was performed. The patient was placed in the left lateral recumbent position. Procedural sedation was administered by anesthesia. Examination began with a thorough inspection of the perianal area there was no evidence of fissures, fistulae, external hemorrhoids or cutaneous malignancy. The colonoscopy scope was then placed into the anal canal and was advanced to the cecum, which was identified by the ileocecal valve, the appendiceal orifice and the confluence of the taenia. The scope was then slowly withdrawn examining colon thoroughly in all directions, irrigating it of any residual stool. The scope was retroflexed within the rectum The patient tolerated the procedure well. They will be discharged once criteria are met. The prep was of good/excellent quality. The withdrawl time was 8 minutes. FINDINGS * Very minimal internal hemorrhoids no banding performed * Transverse colonic 3 mm polyp likely hyperplastic removed with biopsy forceps Specimen(s): other (Transverse colon polyp) Impression: Colonic polyp x1 Post-procedure Plan for aftercare: Follow-up is dependent on pathology findings Disposition: same day surgery
[2024-09-25 14:12] VITALS: BP 100/55; PULSE 67; RESP 16; TEMP 36.2; O2SAT 98
[2024-09-25 14:19] VITALS: BP 115/70; PULSE 73; RESP 16; O2SAT 98
== END 2024-09-25 14:32 | disposition home or self-care (01) ==
PROVIDERS: PCP Family Medicine; Referring Provider Surgery; Visit Provider Surgery
PROC: 0DJD8ZZ Inspection of Lower Intestinal Tract, Via Natural or Artificial Opening Endoscopic (ICD-10-PCS; CPT 45378; principal; 2024-09-25 13:30)
DX: R10.9 Unspecified abdominal pain (principal); K62.5 Hemorrhage of anus and rectum; K63.5 Polyp of colon; K64.8 Other hemorrhoids
CPT/HCPCS: 45380; J2704

== ENCOUNTER 2024-11-11 19:47 | Emergency (ER) | payer BC, SELFPAY ==
[2024-11-11] VITALS (10 sets, daily range): BP systolic 135–206; BP diastolic 65–99; PULSE 54–75; RESP 18; TEMP 36.9; O2SAT 93–99; BMI 25.1
[2024-11-11] MEDS: ONDANSETRON 4 MG/2 ML INJ IV (20:26)
[2024-11-11] MEDS: KETOROLAC 30 MG/ML VIAL 15 MG IV (20:26)
[2024-11-11 20:39] LABS: Alanine Aminotransferase 50 IU/L (<35); Albumin 4.7 g/dL (3.5-5.0); Albumin Globulin Ratio 1.4 (1.0-2.8); Alkaline Phosphatase 66 U/L (38-126); Aspartate Aminotransferase 52 IU/L (14-36); BUN Creatinine Ratio 17.9 (6-22); Bilirubin Total 1.1 mg/dL (0.2-1.3); Blood Urea Nitrogen 20 mg/dL (7-17); Calcium 9.6 mg/dL (8.4-10.2); Carbon Dioxide 26 mmol/L (22-32); Chloride 98 mmol/L (98-107); Estimated Glomerular Filt Rate 56 mL/min (>60); Globulin 3.4 g/dL (1.7-4.1); Glucose 182 mg/dL (80-110); HEMOLYSIS < 15 (0-50); Lipase 324 U/L (23-300); Potassium 3.9 mmol/L (3.4-5.1); Sodium 135 mmol/L (137-145); Total Protein 8.1 g/dL (6.3-8.2)
[2024-11-11 20:45] LABS: Add Manual Diff / Slide Review NO; Basophils Absolute Auto 100 /uL (0-100); Basophils Percent Auto 0.7 % (0-2); Eosinophils Absolute Auto 100 /uL (0-450); Eosinophils Percent Auto 1.1 % (2-4); Hematocrit 43.2 % (36-46); Hemoglobin 15.2 g/dL (12.0-16.0); Lymphocytes Absolute Auto 1600 /uL (1100-4500); Lymphocytes Percent Auto 15.4 % (25-40); Mean Corpuscular HGB Conc 35.2 % (30-36); Mean Corpuscular Hemoglobin 33.6 PG (26-34); Mean Corpuscular Volume 95.3 fL (80-100); Monocytes Absolute Auto 500 /uL (0-900); Monocytes Percent Auto 4.9 % (3-14); Neutrophils Absolute Auto 8300 /uL (1500-7000); Neutrophils Percent Auto 77.9 % (50-75); Platelet Count 258 X10^3/uL (150-400); Red Blood Cell Count 4.53 X10^6/uL (4.0-5.2); Red Cell Distribution Width 12.9 % (11.6-14.8); White Blood Cell Count 10.6 X10^3/uL (4.5-11.0)
[2024-11-11 20:57] LABS: Bacteria Urine None Seen; Culture Indicated Urine Cult Not Indicated; RBC Urine 0-1/HPF (0-5/HPF); Squamous Epithelial Cell Urine 0-1 /HPF (0-5/HPF); Urine Volume 10mL (spun); WBC Urine None Seen (0-5/HPF)
--- NOTE | 2024-11-11 21:17 | ED.BACK ---
HPI - Back Pain/Injury General Chief Complaint: Back Pain/Injury Stated Complaint: Low Back/Hip Pain, Chills, Nausea Time Seen by Provider: 11/11/24 20:22 Source: patient History of Present Illness HPI Narrative: 64-year-old female history of hypertension, dyslipidemia, prior breast cancer treated with lumpectomy patient presents with complaint of low back pain wrapping around towards her lower pelvic region. Patient states fairly sudden onset in the last day. Patient states for the waxing and waning intensity. Has very much difficulty with finding a position of comfort. She states movement does not really make it better but does not seem to make it particularly worse. She has had little bit of low back issues in that area in the past but has never been this intense and has not wrapped around to the front in the same way. Denies fevers today did have some chills. She has had some nausea no vomiting. She states normal bowel movements no black or bloody stools. Denies any dysuria, urgency or frequency. Patient has had a recent upper respiratory infection for about 2 weeks but has not had any chest pain or shortness of breath. Patient states she is on carvedilol, atorvastatin and lisinopril. No aspirin. States she has had prior lumpectomy for breast cancer. Had a colonoscopy in September. Denies any other drug allergies. No tobacco, occasional alcohol occasional marijuana. Patient has a lidocaine patch in place which has not been helpful. She has not noticed any rashes or skin changes. Related Data Home Medications Medication Instructions Recorded Confirmed atorvastatin 40 mg tablet 40 mg PO DAILY 04/14/20 09/25/24 carvedilol 12.5 mg tablet 12.5 mg PO BID 04/14/20 09/25/24 multivitamin 1 cap PO DAILY 04/14/20 07/24/24 lisinopril 20 1 tab PO DAILY 07/24/24 09/25/24 mg-hydrochlorothiazide 25 mg tablet Previous Rx's Medication Instructions Recorded hydrocodone 5 mg-acetaminophen 325 1 tab PO Q6H PRN pain #10 tabs 11/11/24 mg tablet prednisone 10 mg tablets in a dose See Rx Instructions PO .COMPLEX 11/11/24 pack #21 ea Allergies Allergy/AdvReac Type Severity Reaction Status Date / Time No Known Drug Allergies Allergy Verified 11/11/24 19:56 Review of Systems Review of Systems ROS Unobtainable: All systems reviewed & are unremarkable except as noted in HPI and below Patient History Medical History Myocardial infarction (02/10/10) Easy bruisability Seasonal allergies Depression Sleep apnea (2008) Cardiomyopathy SVT (supraventricular tachycardia) Hyperlipemia Surgical History Hx of right breast biopsy (04/2020) Hx of lymph node biopsy (05/2020) Family History Father Hypertension Lung cancer Stroke Sister Heart disease Daughter Heart disease Social History marital status: unknown household members: none lives independently: Yes occupational status: previously employed Smoking Status: Never smoker alcohol intake: current substance use type: does not use Smoking Status: Never smoker alcohol intake frequency: a few times a week Exam Narrative Exam Narrative: GENERAL: Alert and oriented x three, female in moderate distress. HEENT: Head normocephalic, atraumatic, EOMI, pupils reactive, face symmetric, moist mucous membranes NECK: Supple, full range of motion CARDIOVASCULAR: Regular rate and rhythm without murmurs, rubs or gallops. RESPIRATORY: Breath sounds equal bilaterally, no wheezes rales or rhonchi. ABDOMEN: Soft, patient does have some mild left lower quadrant tenderness on exam. Normoactive bowel sounds all 4 quadrants. No guarding or rebound, rigidity, no mass : No CVA tenderness bilaterally BACK: No cervical, thoracic or lumbar vertebral point tenderness. Patient does have little bit of tenderness over the left SI joint but very mild. Patient has normal range of motion. Muscle strength is 5/5 in lower extremities. Patient was able to stand get off the bed and move around to try to find a position of comfort without issue. EXTREMITIES: Normal range of motion, no clubbing or edema. Neurovascularly intact NEUROLOGICAL: Cranial nerves II through XII grossly intact. Moving all extremities SKIN: Warm, dry, no petechiae, no rashes or lesions, no vesicles. Initial Vital Signs Initial Vital Signs: Vital Signs Temperature 98.5 F 11/11/24 19:51 Pulse Rate 75 11/11/24 19:51 Respiratory Rate 18 11/11/24 19:51 Blood Pressure 206/99 H 11/11/24 19:51 Pulse Oximetry 99 11/11/24 19:51 Oxygen Delivery Method Room Air 11/11/24 19:51 Course Orders Ordered: ED Orders 11/11/24 20:13 Urine Culture Stat Urine Microscopic Stat 11/11/24 20:20 CBC Auto Diff [Complete Blood Count AUTO DIFF] Stat CMP [Comprehensive Metabolic Panel] Stat Lipase Stat 11/11/24 21:27 CT abdomen pelvis w con Stat Discontinued Medications Hydrocodone Bitart/Acetaminophen (Hydrocodone/Acet 5/325 Prepack) 1 bottle MISC DIRECTED ONE Stop: 11/11/24 23:09 Last Admin: 11/11/24 23:21 Dose: 1 bottle Documented By: CONCHITA Sodium Chloride (Normal Saline 0.9%) 1,000 mls @ 1,000 mls/hr IV BOLUS ONE Stop: 11/11/24 22:26 Last Infusion: 11/11/24 22:39 Dose: Infused Documented By: Admin: 11/11/24 21:35 Dose: 1,000 mls/hr Documented By: CONCHITA Ketorolac Tromethamine (Ketorolac 30 Mg/Ml Vial) 15 mg IV NOW ONE Stop: 11/11/24 20:23 Last Admin: 11/11/24 20:26 Dose: 15 mg Documented By: Morphine Sulfate (Morphine 4 Mg/Ml Inj) 4 mg IV NOW ONE Stop: 11/11/24 21:28 Last Admin: 11/11/24 21:35 Dose: 4 mg Documented By: CONCHITA Ondansetron HCl (Ondansetron 4 Mg/2 Ml Inj) 4 mg IV Q6HR PRN PRN Reason: Nausea And Vomiting Last Admin: 11/11/24 20:26 Dose: 4 mg Documented By: Vital Signs Vital signs: Vital Signs - 8 hr 11/11/24 19:51 11/11/24 21:33 11/11/24 21:54 Temperature 98.5 F Pulse Rate 75 69 Respiratory Rate 18 18 Blood Pressure 206/99 H 206/98 H 177/86 H Pulse Oximetry 99 98 Oxygen Delivery Method Room Air Room Air 11/11/24 21:55 11/11/24 21:56 11/11/24 22:00 Temperature Pulse Rate 66 61 Respiratory Rate 18 Blood Pressure 177/86 H 166/84 H Pulse Oximetry 96 98 Oxygen Delivery Method Room Air 11/11/24 22:00 11/11/24 22:30 11/11/24 22:31 Temperature Pulse Rate 61 54 L Respiratory Rate 18 Blood Pressure 171/81 H Pulse Oximetry 95 94 Oxygen Delivery Method Room Air 11/11/24 22:31 11/11/24 23:00 11/11/24 23:01 Temperature Pulse Rate 57 L 54 L Respiratory Rate Blood Pressure 135/65 Pulse Oximetry 94 93 Oxygen Delivery Method 11/11/24 23:01 Temperature Pulse Rate 55 L Respiratory Rate Blood Pressure Pulse Oximetry 94 Oxygen Delivery Method MDM - Back Pain/Injury Lab Data 11/11/24 20:20 11/11/24 20:20 Labs: Lab Results 11/11/24 11/11/24 Range/Units 20:13 20:20 WBC 10.6 (4.5-11.0) X10^3/uL RBC 4.53 (4.0-5.2) X10^6/uL Hgb 15.2 (12.0-16.0) g/dL Hct 43.2 (36-46) % MCV 95.3 (80-100) fL MCH 33.6 (26-34) PG MCHC 35.2 (30-36) % RDW 12.9 (11.6-14.8) % Plt Count 258 (150-400) X10^3/uL Neut % (Auto) 77.9 H (50-75) % Lymph % (Auto) 15.4 L (25-40) % [place] % (Auto) 4.9 (3-14) % Eos % (Auto) 1.1 L (2-4) % Baso % (Auto) 0.7 (0-2) % Neut # (Auto) 8300 H (2803-4956) /uL Lymph # (Auto) 1600 (0599-3620) /uL [place] # (Auto) 500 (0-900) /uL Eos # (Auto) 100 (0-450) /uL Baso # (Auto) 100 (0-100) /uL Sodium 135 L (137-145) mmol/L Potassium 3.9 (3.4-5.1) mmol/L Chloride 98 (98-107) mmol/L Carbon Dioxide 26 (22-32) mmol/L BUN 20 H (7-17) mg/dL Creatinine 1.12 H (0.52-1.04) mg/dL Estimated GFR 56 L (>60) mL/min BUN/Creatinine Ratio 17.9 (6-22) Glucose 182 H (80-110) mg/dL Calcium 9.6 (8.4-10.2) mg/dL Total Bilirubin 1.1 (0.2-1.3) mg/dL AST 52 H (14-36) IU/L ALT 50 H (<35) IU/L Alkaline Phosphatase 66 (38-126) U/L Total Protein 8.1 (6.3-8.2) g/dL Albumin 4.7 (3.5-5.0) g/dL Globulin 3.4 (1.7-4.1) g/dL Albumin/Globulin Ratio 1.4 (1.0-2.8) Lipase 324 H (23-300) U/L Urine RBC 0-1/hpf (0-5/HPF) Urine WBC None seen (0-5/HPF) Ur Squamous Epith Cells 0-1 /hpf (0-5/HPF) Urine Bacteria None seen (None) Ur Culture Indicated? Cult not indicated Vol Urine Centrifuged 10ml (spun) Urine Dip Bedside Urine Glucose Negative Bedside Urine Bilirubin - Negative Bedside Urine Ketone - Negative Urine Specific [place] 1.010 Bedside Urine Occult Blood +/- Bedside Urine pH 7.0 Bedside Urine Protein + 30 Bedside Urine Urobilinogen +/- 1mg Bedside Urine Nitrite - Negative Bedside Urine Leukocytes - Negative Esterase Imaging Data CT scan - abdomen/pelvis: Radiologist's Impression: [address] [address] [address] Scan Report Signed Patient: Mary Oviedo MR#: [id number] : 1960 Acct:[id number] Age/Sex: 64 / F Date of Service: 11/11/24 Loc: ED Accession Number: [id number] Procedure: CT abdomen pelvis w con Ordering Provider: Anna Rahman D.O. PROCEDURE: CT ABDOMEN PELVIS W CON INDICATIONS: Left hip pain but tender LLQ also, sudden onset, hematuria TECHNIQUE: After the administration of intravenous contrast, axial sections acquired from the lung bases to the pubic symphysis. Coronal and sagittal reformats were performed. For radiation dose reduction, the following was used: automated exposure control, adjustment of mA and/or kV according to patient size. COMPARISON: None. FINDINGS: Image quality: Diagnostic. Lower Chest: No significant findings. ABDOMEN: Liver: No solid mass. Hepatic cysts and additional subcentimeter hypodensities, which are too small to characterize, probable cysts versus hemangiomas. Hepatic steatosis. Gallbladder: No radiopaque gallstones or wall thickening. Biliary ducts: No biliary dilation. Pancreas: No ductal dilation. Spleen: Size is within normal limits. Adrenal Glands: No adrenal nodules. Kidneys and Ureters: No hydronephrosis. No solid mass. No complex renal cystic lesion which requires follow up. Stomach and Bowel: Normal colonic caliber, without significant wall thickening. Normal caliber appendix. Peritoneum: No abnormal intraperitoneal fluid. No free air. Ventral Wall: Tiny fat containing periumbilical ventral hernia. Abdominal Nodes: No retroperitoneal or mesenteric adenopathy by size criteria. Vessels: Aorta and inferior vena cava are normal in size. PELVIS: Pelvic Organs: Unremarkable. Bladder: No bladder wall thickening, accounting for underdistention. Pelvic Nodes: No enlarged lymph nodes. Miscellaneous: No inguinal hernias are seen. Bones: No aggressive osseous abnormality. IMPRESSION: Hepatic steatosis. No other acute process in the abdomen or pelvis. Approved by: Melanie Mireles M.D.,Ph.D. on 11/11/2024 at 22:48 MDM Narrative Medical decision making narrative: 64-year-old female with complaint of pain sort of in the lower back SI region wrapping around but wraps around to the left lower quadrant. Unable to reproduce some very mild pain in the SI joint but patient is also tender in the left lower quadrant. No fevers but she has had some nausea fairly abrupt onset. Patient has had some mild back issues in the past but nothing like this. She was quite a bit of difficulty finding physician comfortable and movement does not seem to make it worse. Workup shows creatinine is 1.12 was 0.8 in 2016 patient notes her last labs that she had checked noticed a bump in her creatinine. Patient's urine shows 1 red cell no other signs of infection. Differential includes potential kidney stone, diverticulitis, back pain versus shingles or other potential cause based on patient's symptoms felt appropriate to obtain CT imaging. White count of 10.6 hemoglobin of 15 platelets of 258. Chemistry shows sodium 135 creatinine is 1.12 was 0.8 in 2016 BUN 20, glucose is 182. Lipase is 324. One red cell no white cells 1 squamous no bacteria. Point of care urine shows blood no nitrates no leuks. Shows hepatic cyst additional subcentimeter hypodensity too small to characterize probable cyst versus hemangiomas. Hepatic steatosis. No acute process in the abdomen or pelvis. Patient had Toradol which was somewhat helpful but pain was sort of ramping back up. Had an additional dose of pain medication and patient is much more comfortable on recheck. Discussed patient's findings today. She was feeling much improved after medication felt appropriate for discharge home. Discussed she does have some hematuria she was to follow up there is a urine culture pending although no other signs of infection and she has not had any urinary symptoms. Patient do a short course of pain medication she does have some discomfort in the SI joint was given a short course of prednisone. Discussed shingles could be preceded by pain so told her to watch for rash or skin changes as well as return precautions and general. Patient feels comfortable with this plan all questions answered. She does note she has had some hematuria in the past did have some workup for it. Discharge Plan Departure Patient Disposition: Home Clinical Impression: Back pain Instructions: DI for Low Back Pain Activity Restrictions/Additional Instructions: Please follow up with primary care symptoms are mild but persisting. Your workup today did show little bit of hepatic steatosis or fatty liver as well as some small cysts that you should share with your physician but not require additional workup at this time. You do have some hematuria or blood in your urine please follow-up with your physician to have your urine rechecked to make sure it has resolved. You do have a urine culture pending if it shows any signs of infection you will be contacted cultures typically take 48-72 hours to result. Watch for any changes to your skin such as blisters or vesicles in the area of your pain if you notice this shingles can sometimes have pain preceding rash. Can take prednisone daily until completed. You can take ibuprofen up to 600 mg every 6 hours as needed for pain and/or [place] 1-2 tablets every 6 hours as needed. This medication can make you sleepy do not drive, perform hazardous activities or make any major decisions while taking it. This medication will make you constipated please take a stool softener once to twice daily until stools are soft and regular. Prescription sent to [facility] in [place]. Please return if you are having rapidly worsening symptoms, new rash or skin changes, fevers, persistent vomiting, worsening abdominal back or flank pain, inability difficulty urinating or other new or concerning changes. Prescriptions: New hydrocodone-acetaminophen 5-325 mg tablet 1 tab PO Q6H PRN (Reason: pain) Qty: 10 0RF prednisone 10 mg tablets,dose pack See Rx Instructions .ROUTE .COMPLEX Qty: 21 0RF Rx Instructions: orally per package directions No Action multivitamin Capsule 1 cap PO DAILY carvedilol 12.5 mg tablet 12.5 mg PO BID Rx Instructions: must administer with a meal/food atorvastatin 40 mg tablet 40 mg PO DAILY lisinopril-hydrochlorothiazide 20-25 mg tablet 1 tab PO DAILY Referrals: Lyndon Roman MD [Primary Care Provider] - Stand Alone Forms: Patient Portal/API/Survey
--- NOTE | 2024-11-11 21:27 | DI.CT.S_ITS ---
PROCEDURE: CT ABDOMEN PELVIS W CON INDICATIONS: Left hip pain but tender LLQ also, sudden onset, hematuria TECHNIQUE: After the administration of intravenous contrast, axial sections acquired from the lung bases to the pubic symphysis. Coronal and sagittal reformats were performed. For radiation dose reduction, the following was used: automated exposure control, adjustment of mA and/or kV according to patient size. COMPARISON: None. FINDINGS: Image quality: Diagnostic. Lower Chest: No significant findings. ABDOMEN: Liver: No solid mass. Hepatic cysts and additional subcentimeter hypodensities, which are too small to characterize, probable cysts versus hemangiomas. Hepatic steatosis. Gallbladder: No radiopaque gallstones or wall thickening. Biliary ducts: No biliary dilation. Pancreas: No ductal dilation. Spleen: Size is within normal limits. Adrenal Glands: No adrenal nodules. Kidneys and Ureters: No hydronephrosis. No solid mass. No complex renal cystic lesion which requires follow up. Stomach and Bowel: Normal colonic caliber, without significant wall thickening. Normal caliber appendix. Peritoneum: No abnormal intraperitoneal fluid. No free air. Ventral Wall: Tiny fat containing periumbilical ventral hernia. Abdominal Nodes: No retroperitoneal or mesenteric adenopathy by size criteria. Vessels: Aorta and inferior vena cava are normal in size. PELVIS: Pelvic Organs: Unremarkable. Bladder: No bladder wall thickening, accounting for underdistention. Pelvic Nodes: No enlarged lymph nodes. Miscellaneous: No inguinal hernias are seen. Bones: No aggressive osseous abnormality. IMPRESSION: Hepatic steatosis. No other acute process in the abdomen or pelvis. Approved by: Melanie Mireles M.D.,Ph.D. on 11/11/2024 at 22:48
[2024-11-11] MEDS: MORPHINE 4 MG/ML INJ IV (21:35)
[2024-11-11] MEDS: SODIUM CHLORIDE 0.9% 1,000 ML 1000 ML IV (21:35)
[2024-11-11] MEDS: HYDROCODONE/ACET 5/325 PREPACK 1 BOTTLE MISC (23:21)
== END 2024-11-11 23:35 | disposition home or self-care (01) ==
PROVIDERS: Emergency Provider Emergency Medicine; PCP Family Medicine
DX: M54.50 Low back pain, unspecified (principal); R10.32 Left lower quadrant pain
CPT/HCPCS: 36415; 74177; 80053; 81003; 81015; 83690; 85025; 87086; 96361; 96374; 96375; 99284; J1885; J2270; J2405; Q9967

== ENCOUNTER → 2024-12-07 11:27 | Outpatient (CLI) | payer BC, SELFPAY ==
--- NOTE | 2024-12-07 | DI.US.S_ITS ---
PROCEDURE: US PELVIC COMPLETE INDICATIONS: lower abdominal pain TECHNIQUE: Real-time scanning was performed of the pelvic organs, with image documentation. Additional endovaginal scanning was necessary due to incomplete visualization of the adnexal and endometrial structures by transabdominal scanning. COMPARISON: [facility], , US PELVIC COMPLETE, 07/20/2024, 8:48. FINDINGS: Uterus: Uterus is anteverted and normal in size at 4.1 x 1.9 x 2.7 cm. The myometrium is homogeneous. The endometrium measures 2 mm combined thickness. No endometrial mass or fluid. Ovaries: The ovaries are not visualized. No adnexal masses are seen. Other: No pathologic free abdominal or pelvic fluid. IMPRESSION: Normal appearing uterus and endometrium. Ovaries are not visualized. No adnexal mass. No pelvic free fluid. We strive to produce accurate, complete, and clear reports of imaging services. To assist us in improving patient care, this report was composed using standard report templates and voice recognition software. Therefore, it may contain abnormal punctuation, insertions and/or omissions. Occasional wrong-word or sound-alike substitutions may occur. Though we review the report and make efforts to correct it, we do recommend that the report be read carefully in proper context to recognize any text inaccuracies. Dictated by: Chacho Yang M.D. on 12/07/2024 at 16:27 Approved by: Chacho Yang M.D. on 12/07/2024 at 16:35
== END ==
PROVIDERS: PCP Family Medicine; Referring Provider Family Medicine; Visit Provider Family Medicine
DX: R10.30 Lower abdominal pain, unspecified (principal)
CPT/HCPCS: 76830; 76856

== ENCOUNTER → 2024-12-16 14:56 | Outpatient (CLI) | payer BC, SELFPAY ==
[2024-12-16 16:22] LABS: Cancer Antigen 125 6.7 U/mL (0-35)
== END ==
LOC: LAB 14:57
PROVIDERS: PCP Family Medicine; Referring Provider Obstetrics & Gynecology; Visit Provider Obstetrics & Gynecology
DX: R10.32 Left lower quadrant pain (principal)
CPT/HCPCS: 36415; 86304

== ENCOUNTER → 2024-12-31 15:35 | Outpatient (CLI) | payer BC, SELFPAY ==
--- NOTE | 2024-12-31 15:35 | DI.MG.S_ITS ---
BILATERAL DIGITAL SCREENING MAMMOGRAM 3D/2D WITH CAD: 12/31/2024 CLINICAL: Routine screening. Comparison is made to exams dated: 12/18/2023 mammogram, 12/17/2022 mammogram, and 10/25/2021 mammogram - [facility]. There are scattered areas of fibroglandular density (category b / 25%-50% glandular tissue). Current study was also evaluated with a Computer Aided Detection (CAD) system. There is a biopsy clip in the left breast. No significant masses, calcifications, or other findings are seen in either breast. There has been no significant interval change. IMPRESSION: NEGATIVE There is no mammographic evidence of malignancy. A 1 year screening mammogram is recommended. Based on the Tyrer Cuzick model (a risk assessment model) the patient's lifetime risk is 8.2% and her 10 year risk is 3.5%. According to the ACR, ACS, and NCCN guidelines, an annual breast MRI exam along with mammogram is recommended if the patient's lifetime risk is 20% or greater. This exam was interpreted at Station ID: [id number]. NOTE: For mammograms, a report in lay terms will be sent to the patient. Approximately 15% of breast malignancies will not be visualized mammographically. In the management of a palpable breast mass, a negative mammogram must not discourage biopsy of a clinically suspicious lesion. Electronically Signed By: Amanda chowdhury/moni:01/01/2025 12:36:58 copy to: WARD ROTHMAN letter sent: Normal Exam ACR BI-RADS Category 1: Negative
== END ==
PROVIDERS: PCP Family Medicine; Referring Provider Family Medicine; Visit Provider Family Medicine
DX: Z12.31 Encounter for screening mammogram for malignant neoplasm of breast (principal)
CPT/HCPCS: 77063; 77067

== ENCOUNTER → 2025-01-13 13:41 | Outpatient (CLI) | payer BC, SELFPAY ==
--- NOTE | 2025-01-13 13:42 | DI.MRI.S_ITS ---
PROCEDURE: MR PELIS WO/W CON INDICATIONS: Pelvic pain TECHNIQUE: Coronal HASTE, sagittal T2 FSE, axial T1 FSE, axial and coronal nonbreath-hold T2 FSE. Axial dynamic VIBE during administration of contrast. Post-contrast axial and coronal VIBE/2-D FLASH with fat saturation from the iliac crests to the symphysis. Optional diffusion weighted imaging and ADC may be performed. COMPARISON: [facility], CT, CT ABDOMEN PELVIS W CON, 11/11/2024, 21:30. FINDINGS: Image quality: Excellent. Bowel and peritoneum: No pathologic free pelvic fluid. Inferior colon and small bowel loops are normal in caliber. Genitourinary system: Bladder wall is normal in thickness. Distal ureters are non distended. Nodes and vessels: No pathologic pelvic or inguinal adenopathy by size criteria. Iliac vessels are normal in caliber. Soft tissues: No inguinal hernias. Note is made of a L4-L5 circumferential disc bulge or protrusion, partially visualized, with what appears to be significant spinal stenosis concentrically at this level. Bones: Marrow is normal in overall signal. IMPRESSION: No pelvic inflammation or neoplasm is identified. No sign of ascites. No adenopathy is found. Source of current symptoms is not identified. Note is made of a circumferential disc bulge/protrusion involving the L4-L5 disc with limited visualization on sagittal imaging that includes that area. This study is not optimized for spinal canal visualization but there does appear to be significant spinal stenosis at L4-L5. Please correlate clinically to determine whether dedicated spine MRI would be warranted. Dictated by: George Castorena M.D. on 01/14/2025 at 10:27 Approved by: George Castorena M.D. on 01/14/2025 at 10:36
== END ==
PROVIDERS: PCP Family Medicine; Referring Provider Obstetrics & Gynecology; Visit Provider Obstetrics & Gynecology
DX: M51.26 Other intervertebral disc displacement, lumbar region (principal); R10.9 Unspecified abdominal pain
CPT/HCPCS: 72197; A9579

== ENCOUNTER → 2025-01-25 11:02 | Outpatient (CLI) | payer BC, SELFPAY ==
--- NOTE | 2025-01-25 11:05 | DI.RAD.S_ITS ---
PROCEDURE: XR LUMBAR SPINE MIN 4V INDICATIONS: Lumbar Stenosis TECHNIQUE: 5 views of the lumbar spine were acquired, including bilateral oblique views. COMPARISON: None. FINDINGS: Lumbar spine curvature and alignment: Normal. Bones: There are no osseous abnormalities. Disc spaces: Mild L2-3, L3-4 and L4-5 degenerative disc disease noted. There is mild bilateral L5-S1 degenerative facet disease Soft tissues: No soft tissue swelling, calcification or mass. IMPRESSION: Degeneration Dictated by: Delano Khalil M.D. on 01/26/2025 at 11:28 Approved by: Delano Khalil M.D. on 01/26/2025 at 11:29
== END ==
LOC: RAD 11:04
PROVIDERS: PCP Family Medicine; Referring Provider Physical Medicine & Rehabilitation; Visit Provider Physical Medicine & Rehabilitation
DX: M51.16 Intervertebral disc disorders with radiculopathy, lumbar region (principal); M47.27 Other spondylosis with radiculopathy, lumbosacral region
CPT/HCPCS: 72110

== ENCOUNTER → 2025-01-30 14:41 | Outpatient (CLI) | payer BC, SELFPAY ==
--- NOTE | 2025-01-30 14:44 | DI.MRI.S_ITS ---
PROCEDURE: MR LUMBAR SPINE WO CON INDICATIONS: Left L1/2, L2/3 radiculopathy TECHNIQUE: Noncontrast sagittal T1 spin echo and T2 fast echo, sagittal STIR, and T2 fast spin echo through the lumbar spine. In cases with scoliosis, additional coronal T2 fast spin echo may be performed. COMPARISON: [facility], CR, XR LUMBAR SPINE MIN 4V, 01/25/2025, 11:08. [facility], CT, CT ABDOMEN PELVIS W CON, 11/11/2024, 21:30. FINDINGS: Image quality: Excellent. Anatomy: There are 5 nonrib-bearing lumbar vertebrae. Bones: Marrow signal within normal limits. The vertebral body heights are preserved. Alignment: Mild straightening of the lumbar lordosis. Discs: Preservation of the intervertebral disc heights. Mild multilevel disc desiccation. Small Schmorl's nodes at the inferior endplate of L1 and superior endplate of L2 (12/20-). Mild multilevel disc bulging, most conspicuous at L1-L2 and L4-L5. Spinal cord: The conus medullaris ends at the level of T12-L1. No abnormal cord signal. Muscles: Overall muscle bulk is preserved. Prevertebral: No prevertebral soft tissue edema. No abdominal aortic aneurysm. No abnormal prevertebral soft tissue mass in the [id number]. Multilevel findings: Mild facet arthropathy (most conspicuous at L4-L5 and L5-S1), ligamentum flavum thickening at L4-L5 and L5-S1. INDIVIDUAL LEVELS: T12-L1: No central canal stenosis. No foraminal stenosis. L1-L2: No central canal stenosis. No foraminal stenosis. Left central/subarticular disc protrusion with mild superior extrusion and corresponding stir hyperintense signal (4/12; 2/12; 5/7). L2-L3: No central canal stenosis. No right foraminal stenosis. Mild left foraminal stenosis L3-L4: Disc bulge effacing the ventral thecal sac, resulting in mild central canal stenosis. Mild bilateral foraminal stenosis. L4-L5: Disc bulge effacing the ventral thecal sac, resulting in moderate central canal stenosis. No foraminal stenosis. Bilateral subarticular disc protrusions contacting the descending L5 nerve roots (2/8; 2/12). L5-S1: No central canal stenosis. No foraminal stenosis. IMPRESSION: 1. Acute-subacute left central/subarticular disc protrusion with a superiorly directed extrusion at the L1-L2 level, which may represent a pain generator. 2. Bilateral subarticular disc protrusions at the L4-L5 level, contacting the bilateral descending L5 nerve roots. Please correlate with symptomatology in the corresponding dermatomal distribution. 3. No severe central canal stenosis. 4. No severe foraminal stenosis. Dictated by: Bronson Patricio M.D. on 01/30/2025 at 16:00 Approved by: Bronson Patricio M.D. on 01/30/2025 at 16:15
== END ==
LOC: MRI 14:42
PROVIDERS: PCP Family Medicine; Referring Provider Physical Medicine & Rehabilitation; Visit Provider Physical Medicine & Rehabilitation
DX: M51.16 Intervertebral disc disorders with radiculopathy, lumbar region (principal)
CPT/HCPCS: 72148

== ENCOUNTER 2025-03-09 13:28 | Outpatient (CLI) | payer BC, SELFPAY ==
[2025-03-09] VITALS (7 sets, daily range): BP systolic 109–176; BP diastolic 67–101; PULSE 53–63; RESP 14–18; TEMP 36.1; O2SAT 97–100
[2025-03-09] MEDS: MIDAZOLAM 2 MG/2 ML VIAL IV (14:20)
[2025-03-09] MEDS: DEXAMETHASONE 10 MG/ML VIAL INJ (14:26)
[2025-03-09] MEDS: iopamidoL 15 ML VIAL 3 ML INJ (14:26)
[2025-03-09] MEDS: BETAMETHASONE 30 MG/5 ML MDV 12 MG INJ (14:27)
[2025-03-09] MEDS: BUPIVACAINE 0.25% (PF) VIAL 2 ML INJ (14:27)
[2025-03-09] MEDS: BETAMETHASONE 30 MG/5 ML MDV 6 MG INJ (14:28)
--- NOTE | 2025-03-09 14:37 | P.PCN_ITS ---
Date/Time/Diagnoses Date of procedure: 03/09/25 Time of procedure: 14:37 Pre-procedure diagnosis: 1. FORAMINAL STENOSIS WITH LE SYMPTOMS Post-procedure diagnosis: same Procedure Notes Procedure: 1. FLUOROSCOPICALLY GUIDED CONTRAST CONTROLLED TRANSFORAMINAL EPIDURAL STEROID INJECTION - LEFT L1/2 TFESI Indications: Mary is referred by Dr. Roman for treatment of Foraminal Stenosis with left LE Symptoms Physician: Roel Epps Total Fluoroscopy time (seconds): 7 Total sedation minutes: 12 Complications: none Procedure in detail & Post-procedure care: FINDINGS Foraminal Nerve Root Compression secondary to disc disease and facet hypertrophy DESCRIPTION OF PROCEDURE Following review of allergy and review of potential side effects and complications, including, but not necessarily limited to, infection, allergic reaction, local tissue breakdown, stroke, temporary or permanent nerve injury, paralysis, and possible , the patient indicated that the patient understood and agreed to proceed. An informed consent document was signed by the patient, witnessed by a nurse, and placed in the patient's chart. Additionally, other treatment options including medications, modalities, and physical therapy were reviewed with the patient. After review of previous anaesthesic history and IV conscious sedation the patient was deemed safe to proceed with today?s procedure with IV conscious sedation as ASA class II designation. Safety time-out was performed to confirm patient ID, procedure to be performed and site of procedure. IV sedation was accomplished with a combination of 2mg of Versed was administered by the RN after DO order, titrated to patient comfort during the course of the procedure while the patient remained responsive to all verbal commands In the prone position following sterile prep and drape of the lumbar region, the left L1/2 posterior neuroforamen was identified fluoroscopically. The skin was anesthetized via a 25-gauge 1.5-inch needle with 1% lidocaine solution. At this point, a 25-gauge 3.5-inch spinal needle was atraumatically introduced and advanced under fluoroscopic guidance through the posterior left L1/2 neuroforamen to approximately the anterior aspect of the canal. Depth was confirmed on lateral view. Following negative aspiration, injection of approximately 1.5cc of Isovue 200 under live fluoroscopy in the AP view confirmed excellent flow along the nerve root, into the epidural space without vascular or intrathecal uptake observed Radiological data, including multiple fluoroscopic views of the lumbosacral spine, reveal a spinal needle at the left L1/2 posterior neuroforamen. Subsequent views show flow of contrast material flowing superiorly and inferiorly along the nerve root confirming epidural flow. Subsequently, a test dose of 1.5 cc of 1% lidocaine solution was administered and patient was observed for two minutes for signs or symptoms of complications, including abdominal pain, shortness of breath, bilateral upper or lower extremity weakness, nausea and vomiting, prior to steroid injection. At this point, a total of 3cc or 10mg of dexamethasone and 12mg of betamethasone was injected without incident. The patient tolerated the procedure well without signs or symptoms of complications prior to transfer to the recovery area continued monitoring without incident. The patient was then transferred to the recovery area where they were observed for an appropriate time after the injection. The patient reported a VAS score of 7 prior to the procedure and a post-procedure VAS of 0. POST OP INSTRUCTIONS The patient was provided a Pain Log to continue to record their response to the target-specific procedure prior to follow-up visit with their referring physicia n. Additionally, specific post-injection care instructions and a contact number to our office were provided if concerns arise regarding possible complications associated with the procedure are suspected.
== END 2025-03-09 14:50 | disposition home or self-care (01) ==
LOC: RAD 13:28
PROVIDERS: PCP Family Medicine; Referring Provider Physical Medicine & Rehabilitation; Visit Provider Physical Medicine & Rehabilitation
DX: M48.061 Spinal stenosis, lumbar region without neurogenic claudication (principal); M51.16 Intervertebral disc disorders with radiculopathy, lumbar region; M47.26 Other spondylosis with radiculopathy, lumbar region
CPT/HCPCS: 64483; 99152; J0702; J1100; J2250; J3490

== ENCOUNTER → 2025-10-04 10:02 | Outpatient (CLI) | payer BC, SELFPAY ==
--- NOTE | 2025-10-04 10:04 | DI.RAD.S_ITS ---
PROCEDURE: XR DEXA AXIAL SKELETON INDICATIONS: Screening COMPARISON: None. FINDINGS: Lumbar Spine: Bone mineral density 1.079 g/cm2, T score 0.3. Left Femoral Neck: Bone mineral density 0.683 g/cm2, T score -1.5. Left Hip: Bone mineral density 0.963 g/cm2, T score 0.2. Fracture Risk Calculation (when applicable): 10-year fracture risk of a major osteoporotic fracture 4.8 percent and of a hip fracture 0.5 percent. (T score greater or equal to -1.0 to: NORMAL) (T score from -1.1 to -2.4: OSTEOPENIA) (T score less than or equal to -2.5: OSTEOPOROSIS) IMPRESSION: Osteopenia with increased for fracture risk as above. Follow-up guidelines as follows: Osteoporosis: Consider a repeat DEXA and Vertebral Fracture Assessment (VFA) exam in 2 years or sooner if medically necessary, to reassess this patient's status. Osteopenia: Consider a repeat DEXA in 2-3 years to reassess this patient's status, or if there is a new clinical indication. Normal: Consider a repeat DEXA in 5 years or sooner, or if there is a new clinical indication. All treatment decisions require clinical judgment and consideration of individual patient factors, including patient preferences, comorbidities, previous drug use, risk factors not captured in the FRAX model (e.g., frailty, falls, vitamin D deficiency, increased bone turnover, interval significant decline in bone density ) and possible under- or over-estimation of fracture risk by FRAX. In addition, the NOF Guide recommends that FDA-approved medical therapies be considered in postmenopausal women and men age >= 50 years with a: * Hip or vertebral (clinical or morphometric) fracture * T-score of <=-2.5 at the spine or hip * Ten-year fracture probability by FRAX of >= 3% for hip fracture or >=20% for major osteoporotic fracture. Dictated by: Chacho Yang M.D. on 10/04/2025 at 13:22 Approved by: Chacho Yang M.D. on 10/04/2025 at 13:26
== END ==
LOC: RAD 10:04
PROVIDERS: PCP Family Medicine; Referring Provider Family Medicine; Visit Provider Emergency Medicine
DX: N95.8 Other specified menopausal and perimenopausal disorders (principal); M85.852 Other specified disorders of bone density and structure, left thigh
CPT/HCPCS: 77080